=== PATIENT | female | born 1985 | race Caucasian/White ===

== ENCOUNTER 2016-08-28 08:25 | Emergency (ER) | payer MEDICAID ==
[2016-08-28] MEDS ORDERED: MAG HYDROX/AL HYDROX/SIMETH 30 ML UDC PO STA (08:53)
[2016-08-28] MEDS ORDERED: ONDANSETRON ODT 4 MG TABLET TL STA (08:53)
[2016-08-28] MEDS ORDERED: PHENobarb/HYOSCY/ATROPINE/SCOP 5 ML SYRINGE PO STA (08:54)
[2016-08-28] MEDS ORDERED: LIDOCAINE VISCOUS 2% 15 ML UDC MM STA (08:54)
[2016-08-28] MEDS ORDERED: ONDANSETRON 4 MG/2 ML VIAL IVP STA (08:57)
[2016-08-28] MEDS ORDERED: SODIUM CHLORIDE 0.9% 1,000 ML IV ONE (08:57)
[2016-08-28] MEDS ORDERED: PHENobarb/HYOSCY/ATROPINE/SCOP 5 ML SYRINGE PO ONE (09:03)
[2016-08-28] MEDS ORDERED: MAG HYDROX/AL HYDROX/SIMETH 30 ML UDC ONE (09:03)
[2016-08-28] MEDS ORDERED: ONDANSETRON ODT 4 MG TABLET ONE (09:03)
[2016-08-28] MEDS ORDERED: LIDOCAINE VISCOUS 2% 15 ML UDC MM ONE (09:03)
[2016-08-28] MEDS ORDERED: HYDROmorphone 1 MG/ML SYRINGE IM STA (09:45)
[2016-08-28] MEDS ORDERED: PROMETHAZINE 25 MG/1 ML VIAL IM STA (09:45)
[2016-08-28] MEDS ORDERED: PROMETHAZINE 25 MG/1 ML VIAL ONE (09:47)
[2016-08-28] MEDS ORDERED: HYDROmorphone 1 MG/ML SYRINGE ONE (09:47)
== END 2016-08-28 10:56 | disposition home or self-care (01) ==
DX: K29.70 Gastritis, unspecified, without bleeding (principal); Z87.891 Personal history of nicotine dependence
CPT/HCPCS: 36415; 80053; 83690; 85025; 96372; 99283; 99284; A9270; Q0162

== ENCOUNTER 2016-08-28 20:34 | Emergency (ER) | payer MEDICAID ==
[2016-08-28] MEDS ORDERED: LIDOCAINE VISCOUS 2% 15 ML UDC MM STA (21:31)
[2016-08-28] MEDS ORDERED: PANTOPRAZOLE 40 MG TABLET PO STA (21:31)
[2016-08-28] MEDS ORDERED: MAG HYDROX/AL HYDROX/SIMETH 30 ML UDC PO STA (21:31)
[2016-08-28] MEDS ORDERED: PANTOPRAZOLE 40 MG TABLET ONE (21:34)
[2016-08-28] MEDS ORDERED: LIDOCAINE VISCOUS 2% 15 ML UDC MM ONE (21:34)
[2016-08-28] MEDS ORDERED: MAG HYDROX/AL HYDROX/SIMETH 30 ML UDC ONE (21:35)
== END 2016-08-28 21:57 | disposition home or self-care (01) ==
DX: K29.70 Gastritis, unspecified, without bleeding (principal); D72.829 Elevated white blood cell count, unspecified; Z90.710 Acquired absence of both cervix and uterus; Z90.49 Acquired absence of other specified parts of digestive tract; Z87.891 Personal history of nicotine dependence
CPT/HCPCS: 99283; A9270

== ENCOUNTER 2017-12-15 22:33 | Outpatient (CLI) | payer MEDICAID | END 2017-12-15 22:34 | disposition EMS.NT | LOC: EMS 22:33 | PROVIDERS: ATTEND Surgery | DX: S49.92XA Unspecified injury of left shoulder and upper arm, initial encounter (principal); Y04.2XXA Assault by strike against or bumped into by another person, initial encounter ==

== ENCOUNTER 2018-12-05 22:46 | Outpatient (CLI) | payer MEDICAID | END 2018-12-05 22:47 | disposition critical access hospital (66) | LOC: EMS 22:46 | PROVIDERS: ATTEND Surgery | DX: R10.9 Unspecified abdominal pain (principal); R11.0 Nausea; T50.991A Poisoning by other drugs, medicaments and biological substances, accidental (unintentional), initial encounter; Y92.009 Unspecified place in unspecified non-institutional (private) residence as the place of occurrence of the external cause | CPT/HCPCS: A0425; A0427 ==

== ENCOUNTER 2018-12-05 23:11 | Inpatient (IN) | payer MEDICAID ==
[2018-12-05 23:42] LABS: BASOPHILS % (AUTO) 0.3 %; HGB - HEMOGLOBIN 14.2 g/dL (12.0-16.0); LYMPHOCYTES # (AUTO) 1.7 10^3/uL (1.5-3.5); LYMPHOCYTES % (AUTO) 15.5 %; MEAN CORPUSCULAR HEMOGLOBIN 29.1 pg (27.0-31.0); MEAN PLATELET VOLUME 8.9 fL (7.9-10.8); MONOCYTES # (AUTO) 0.4 10^3/uL (0.0-1.0); MONOCYTES % (AUTO) 3.4 %; NEUTROPHILS # (AUTO) 8.9 10^3/uL (1.5-6.6); NEUTROPHILS % (AUTO) 80.8 %; PLT - PLATELET COUNT 232 10^3/uL (130-450); RED BLOOD COUNT 4.89 10^6/uL (4.20-5.40); RED CELL DISTRIBUTION WIDTH 12.9 % (12.0-15.0)
[2018-12-05 23:53] LABS: ALBUMIN 4.3 g/dL (3.2-5.5); ALBUMIN/GLOBULIN RATIO 1.2 (1.0-2.2); ALKALINE PHOSPHATASE 74 IU/L (42-121); ALT ALANINE AMINOTRANSFERASE 11 IU/L (10-60); AST ASPARTATE AMINOTRANSFERASE 15 IU/L (10-42); BILIRUBIN,TOTAL 0.6 mg/dL (0.2-1.0); BUN - BLOOD UREA NITROGEN 10 mg/dL (6-20); CARBON DIOXIDE - CO2 19 mmol/L (21-32); CHLORIDE 103 mmol/L (101-111); CREATININE 0.7 mg/dL (0.4-1.0); GFR - MDRD 96 (>89); GLUCOSE 138 mg/dL (70-100); LIPASE 32 U/L (22-51); SODIUM 136 mmol/L (135-145); TOTAL PROTEIN 7.8 g/dL (6.7-8.2)
[2018-12-05 23:55] LABS: ACETAMINOPHEN 41 ug/mL (10-30); SALICYLATE 26.5 mg/dL
--- NOTE | 2018-12-06 00:06 | ED Physician Documentation ---
PD HPI OVERDOSE - Stated complaint Stated Complaint: OD - Chief complaint Chief Complaint: MHE - History obtained from History obtained from: Patient, Family (case (in ED at bedside)) - History of Present Illness Timing - onset: Other (per case, ingestion was at 3 PM today (see below)) Subtance(s) ingested: Single (acetaminophen) Associated symptoms: Abdominal pain Contributing factors: Depresssed, Suicidal Pain level now: 8 (abdominal pain) Similar symptoms before: Has not had sx before Recently seen: Not recently seen - Additional information Additional information: patient admits to intentional overdose of tylenol earlier today. She offers limited HPI, as she repeatedly asks for her abdominal discomfort to be immediately addressed. Per patient's daughter , patient texted her earlier today with a message that indicated suicidal intent and included information to the effect of saying goodbye. Patient's daughter says that patient told her she took "two bottles" of tylenol at 3 PM today. Daughter called 911, policed arrived and, per medic report, asked for EMS transport to ED after they confirmed that patient sent suicidal message to family. Review of Systems Unable to obtain: Other (Limited due to uncooperative (not argumentative, but answers most questions by redirecting to her abominal pain and nausea)) Cardiac: denies: Chest pain / pressure Respiratory: denies: Dyspnea GI: reports: Abdominal Pain, Nausea, Vomiting Neurologic: denies: Confused, Altered mental status, Headache Psychiatric: reports: Depressed, Suicidal PD PAST MEDICAL HISTORY - Past Medical History Cardiovascular: None Respiratory: None Endocrine/Autoimmune: None GI: None ANTIQUE DEALER: None : Other HEENT: None Psych: None Musculoskeletal: None Derm: None - Past Surgical History Past Surgical History: Yes General: Appendectomy /ANTIQUE DEALER: Dilation and currettage, Tubal ligation, Hysterectomy - Allergies Allergies/Adverse Reactions: Allergies Allergy/AdvReac Type Severity Reaction Status Date / Time No Known Drug Allergies Allergy Verified 08/28/16 08:34 - Social History Does the pt smoke?: No Smoking Status: Never smoker Does the pt drink ETOH?: Yes Does the pt have substance abuse?: No - Immunizations Immunizations are current?: Yes - POLST Patient has POLST: No PD ED PE NORMAL - Vitals Vital signs reviewed: Yes - General General: Alert and oriented X 3, Well developed/nourished, Other (crying) - HEENT HEENT: PERRL, EOMI, Moist mucous membranes - Neck Neck: Supple, no meningeal sign - Cardiac Cardiac: RRR, No murmur - Respiratory Respiratory: No respiratory distress, Clear bilaterally - Abdomen Abdomen: Soft, Non tender, Non distended - Derm Derm: Normal color, Warm and dry - Extremities Extremities: No edema Results - Vitals Vitals: Vital Signs - 24 hr 12/05/18 12/06/18 23:31 02:23 Temperature 36.6 C Heart Rate 80 74 Respiratory 22 20 Rate Blood Pressure 119/80 123/83 H O2 Saturation 96 98 Oxygen O2 Source Room air - Labs Labs: Laboratory Tests 12/05/18 12/05/18 12/05/18 23:25 23:25 23:25 WBC 11.0 H RBC 4.89 Hgb 14.2 Hct 43.0 MCV 88.0 MCH 29.1 MCHC 33.0 RDW 12.9 Plt Count 232 MPV 8.9 Neut # (Auto) 8.9 H Lymph # (Auto) 1.7 Hamlin # (Auto) 0.4 Eos # (Auto) 0.0 Baso # (Auto) 0.0 Absolute Nucleated RBC 0.01 Nucleated RBC % 0.1 Sodium 136 Potassium 3.3 L Chloride 103 Carbon Dioxide 19 L Anion Gap 14.0 H BUN 10 Creatinine 0.7 Estimated GFR (MDRD) 96 Glucose 138 H Calcium 9.0 Total Bilirubin 0.6 AST 15 ALT 11 Alkaline Phosphatase 74 Total Protein 7.8 Albumin 4.3 Globulin 3.5 Albumin/Globulin Ratio 1.2 Lipase 32 TSH 0.37 Salicylates 26.5 Acetaminophen 41 H* Ethyl Alcohol < 5.0 12/06/18 01:59 WBC RBC Hgb Hct MCV MCH MCHC RDW Plt Count MPV Neut # (Auto) Lymph # (Auto) Hamlin # (Auto) Eos # (Auto) Baso # (Auto) Absolute Nucleated RBC Nucleated RBC % Sodium Potassium Chloride Carbon Dioxide Anion Gap BUN Creatinine Estimated GFR (MDRD) Glucose Calcium Total Bilirubin AST ALT Alkaline Phosphatase Total Protein Albumin Globulin Albumin/Globulin Ratio Lipase TSH Salicylates 23.5 Acetaminophen Ethyl Alcohol PD MEDICAL DECISION MAKING - ED course Complexity details: reviewed old records, reviewed results, re-evaluated patient, considered differential, d/w patient, d/w family ED course: Given IV fluids, zofran, morphine, and ativan with good results. On reevaluation, she is now calm and cooperative. She admits to taking intentional tylenol overdose and says it was approximately 3 PM. her acetaminophen level is mildly elevated at 41. Poison control was contacted and their recommendation is to give mucomyst per 20 hour protocol due to patient's unreliability (her HPI varied several times earlier in ED stay regarding amount of tylenol taken as well as time of ingestion), and considering that her level is below, but close to, threshold for treatment on nomogram if ingestion truly occurred at 3 PM. I explained this plan to patient and she is calm, cooperative, and understands and agrees with this plan. Of note, her salicylate level was also elevated (not undetectable, but within a therapeutic range); poison control's recommendation was repeat after 2 hours. If level is declining, no treatment indicated, but if it increases, to give IV fluids with bicarb Departure - Departure Disposition: ED Place in Observation Clinical Impression: Suicidal ideation Acetaminophen overdose Qualifiers: Encounter type: initial encounter Injury intent: intentional self-harm Qualif ied Code(s): T39.1X2A - Poisoning by 4-Aminophenol derivatives, intentional self-harm, initial encounter Condition: Stable Discharge Date/Time: 12/06/18 03:01
[2018-12-06] MEDS ORDERED: ONDANSETRON 4 MG/2 ML VIAL IVP STA (00:31)
[2018-12-06] MEDS ORDERED: LORazepam 2 MG/ML VIAL IVP STA (00:31)
[2018-12-06] MEDS ORDERED: MORPHINE 2 MG/ML SYRINGE IVP STA (00:31)
[2018-12-06] MEDS ORDERED: SODIUM CHLORIDE 0.9% 1,000 ML IV STA (00:31)
[2018-12-06] MEDS ORDERED: ACETYLCYSTEINE IV STA (01:09)
[2018-12-06] MEDS ORDERED: DEXTROSE 5% IV STA (01:09)
[2018-12-06] MEDS ORDERED: DEXTROSE 5% IV ONE ×2 (02:42→08:00)
[2018-12-06] MEDS ORDERED: ACETYLCYSTEINE IV ONE ×2 (02:42→08:00)
[2018-12-06] MEDS: SODIUM CHLORIDE 0.9% 1,000 ML IV SCH ×2 (04:03→13:27)
[2018-12-06 04:25] LABS: BASOPHILS % (AUTO) 0.4 %; EOSINOPHILS % (AUTO) 0.1 %; HGB - HEMOGLOBIN 13.4 g/dL (12.0-16.0); LYMPHOCYTES # (AUTO) 2.1 10^3/uL (1.5-3.5); LYMPHOCYTES % (AUTO) 16.9 %; MEAN CORPUSCULAR HEMOGLOBIN 29.4 pg (27.0-31.0); MEAN CORPUSCULAR HGB CONC 33.6 g/dL (32.0-36.0); MEAN CORPUSCULAR VOLUME 87.5 fL (81.0-99.0); MEAN PLATELET VOLUME 8.7 fL (7.9-10.8); MONOCYTES # (AUTO) 0.7 10^3/uL (0.0-1.0); MONOCYTES % (AUTO) 5.7 %; NEUTROPHILS # (AUTO) 9.5 10^3/uL (1.5-6.6); NEUTROPHILS % (AUTO) 76.9 %; PLT - PLATELET COUNT 232 10^3/uL (130-450); RED BLOOD COUNT 4.56 10^6/uL (4.20-5.40); RED CELL DISTRIBUTION WIDTH 12.9 % (12.0-15.0); WHITE BLOOD COUNT 12.3 x10^3/uL (4.8-10.8)
[2018-12-06 04:37] LABS: ALBUMIN 3.9 g/dL (3.2-5.5); ALBUMIN/GLOBULIN RATIO 1.2 (1.0-2.2); BILIRUBIN,TOTAL 0.6 mg/dL (0.2-1.0); CALCIUM 8.4 mg/dL (8.5-10.3); CREATININE 0.7 mg/dL (0.4-1.0); TOTAL PROTEIN 7.1 g/dL (6.7-8.2)
[2018-12-06] MEDS: MORPHINE 2 MG/ML SYRINGE IVP PRN ×5 (05:09→21:40)
[2018-12-06] MEDS: ONDANSETRON 4 MG/2 ML VIAL IVP PRN ×3 (05:09→17:29)
--- NOTE | 2018-12-06 05:35 | HISTORY & PHYSICAL EXAMINATION ---
Chief Complaint - Chief Complaint Chief Complaint: ?tylenol overdose, abdominal pain History of Present Illness - Admitted From Admitted From:: [facility] ED - History Obtained From Records Reviewed: yes History obtained from: patient and ED physician Exam Limitations: patient not being very cooperative - History of Present Illness HPI Comment/Other: "SENT TEXT TO ONE OF HER CHILDREN STATING SHE TOOK 200 TABS OF TYLENOL AND HER LIVER WAS SHUTTING DOWN AND SHE WOULDNT BE AROUND MUCH LONGER. PT DENIES SI TO THIS RN AND EMS REPORTS NO SI STATEMENTS TO THEM. EMS REPORTS PT STATING SHE TOOK 50 EXCEDERIN MIGRAINE TABS TODAY. PT STATES TO THIS RN THAT SHE TOOK 15 EXCEDRIN TABS THROUGHOUT THE DAY FOR ABD PAIN. PT DENIES SI THROUGHOUT TRIAGE." The above account was obtained from the triage note because the patient is not very forthcoming with information. Upon presentation to bedside she was sound asleep. On waking he up she immediately complained of abdominal pain and vomited profusely. This was followed by a prolonged series of sneezing. She tells me she has been having abdominal pain for 2 days but only started taking tylenol at 3pm on 12/05/18 for her pain. She denies suicidal ideation or any previous suicidal attempt. On further questioning she says she does not want to answer questions at this time She was found to have a tylenol level of 41. She is being admitted for further management History - Past Medical History Cardiovascular: reports: None Respiratory: reports: None Neuro: reports: None Endocrine/Autoimmune: reports: None GI: reports: None RN RECOVERY: reports: None : reports: Other HEENT: reports: None Psych: reports: None Musculoskeletal: reports: None Derm: reports: None MRSA Hx?: No Other Past Medical History: She denies any significant past medical history - Past Surgical History General: reports: Appendectomy /RN RECOVERY: reports: Dilation and currettage, Tubal ligation, Hysterectomy - Family & Social History Family History Comment/Other: Patient denies any significant family history Living arrangement: At home Living Situation: With family - Substance History Use: Uses substance without health or social issues: NONE (Denies tobacco use, illicit drug use or alcohol) - POLST Patient has POLST: No POLST Status: Full Code Meds/Allgy - Allergies Allergies/Adverse Reactions: Allergies Allergy/AdvReac Type Severity Reaction Status Date / Time No Known Drug Allergies Allergy Verified 08/28/16 08:34 Review of Systems - Constitutional Constitutional: reports: Chills. denies: Fever, Diaphoresis, Night sweats - Eyes Eyes: denies: Blurred vision, Vision loss, Dipolpia - Ears, Nose & Throat Ears, Nose & Throat: denies: Vertigo, Nasal pain, Nasal discharge, Sore throat, Hoarseness - Cardiovascular Cariovascular: denies: Irregular heart rate, Palpitations, Chest pain, Edema, Lightheadedness, Syncope, Exertional dyspnea - Respiratory Respiratory: denies: Cough, Sputum production, Wheezing, Snoring, Hemoptysis, SOB at rest - Gastrointestinal Gastrointestinal: reports: Abdominal pain, Nausea, Vomiting. denies: Abdominal distention, Constipation, Diarrhea, Coffee grounds emesis, Reflux/heartburn - Genitourinary Genitourinary: denies: Dysuria, Frequency, Urgency, Hematuria - Musculoskeletal Musculoskeletal: denies: Muscle aches, Stiffness, Joint pain - Integumentary Integumentary: denies: Rash, Pruritis, Lesions, Dryness - Neurological Neurological: denies: General weakness, Focal weakness, Headache, Dizziness, Numbness - Psychiatric Psychiatric: reports: Depression, Suicidal. denies: Anxiety - Endocrine Endocrine: denies: Polyuria, Polydypsia - Hematologic/Lymphatic Hematologic/Lymphatic: denies: Anemia Prior Level of Functionality: Lives at home with her family Is independent of activities of daily living Exam - Vital Signs Vital Signs: Vital Signs x48h Temp Pulse Resp BP Pulse Ox 12/06/18 02:23 74 20 123/83 H 98 12/05/18 23:31 36.6 C 80 22 119/80 96 - Physical Exam General Appearance: positive: Alert, Moderate distress, Lethargic Eyes Bilateral: positive: Normal inspection, PERRL, EOMI, No lid inflammation, Conjunctivae nml, No scleral icterus ENT: positive: ENT inspection nml, Pharynx nml Neck: positive: Nml inspection, No JVD, Trachea midline Respiratory: positive: Chest non-tender, No respiratory distress. negative: Wheezes, Rales, Rhonchi Cardiovascular: positive: Regular rate & rhythm, No murmur, No gallop Abdomen: positive: Nml bowel sounds, No distention, Tenderness, Guarding, Rebound Back: positive: Nml inspection Skin: positive: Color nml, Warm, Dry. negative: No rash (goose bumps) Extremities: positive: Non-tender, Full ROM, Nml appearance, No pedal edema Neurologic/Psychiatric: positive: Oriented x3 Conclusion/Plan - Problem List (1) Acetaminophen overdose Conclusion/Plan: Patient started on N-Acetylsteine per protocol for tylenol toxicity. Poison control was contacted by the ED Will monitor CMP and tylenol levels Qualifiers: Encounter type: initial encounter Injury intent: intentional self-harm Qualified Code(s): T39.1X2A - Poisoning by 4-Aminophenol derivatives, intentional self-harm, initial encounter (2) Suicidal ideation Conclusion/Plan: Social work consulted for evaluation Patient will likely need a psych eval (3) Nausea and vomiting Conclusion/Plan: Zofran IV ordered (4) Hypokalemia Conclusion/Plan: Likely 2/2 n/v Will replace. Also checking Magnesium - Lab Results Fish Bones: 12/06/18 04:18 12/06/18 04:18 Core Measures - Anticipated LOS I expect patient to be DC'd or transferred within 96 hours.: Yes - DVT/VTE - Prophylaxis VTE/DVT Device ordered at admit?: Yes
[2018-12-06 05:56] LABS: MUDS CUTOFF CONCENTRATIONS CUTOFF CONC BELOW:
[2018-12-06 06:01] LABS: BILIRUBIN,URINE NEGATIVE (NEGATIVE); GLUCOSE, URINE (UA) NEGATIVE (NEGATIVE); KETONES,URINE (UA) >=80 mg/dL (NEGATIVE); LEUKOCYTE ESTERASE, URINE NEGATIVE (NEGATIVE); NITRITE,URINE NEGATIVE (NEGATIVE); OCCULT BLOOD,URINE NEGATIVE (NEGATIVE); PROTEIN,URINE NEGATIVE (NEGATIVE); UROBILINOGEN,URINE 0.2 (NORMAL) E.U./dL (NORMAL)
[2018-12-06 06:14] LABS: HCG UR QUAL NEGATIVE
[2018-12-06 06:15] LABS: CLARITY,URINE CLEAR (CLEAR)
[2018-12-06 06:45] LABS: AMPHETAMINE SCREEN,URINE NEGATIVE (NEGATIVE); BENZODIAZEPINES SCREEN, URINE POSITIVE (NEGATIVE); COCAINE SCREEN URINE POSITIVE (NEGATIVE); METHADONE SCREEN, URINE NEGATIVE (NEGATIVE); METHAMPHETAMINES SCREEN, URINE NEGATIVE (NEGATIVE); OPIATE SCREEN, URINE NEGATIVE (NEGATIVE); OXYCODONE SCREEN, URINE NEGATIVE (NEGATIVE); PROPOXYPHENE SCREEN, URINE NEGATIVE (NEGATIVE); TRICYCLIC ANTIDEPRESSANT,URINE NEGATIVE (NEGATIVE)
[2018-12-06] MEDS: POTASSIUM CHLOR 10 MEQ/100 ML 10 MEQ/100 ML BAG IV SCH ×4 (07:49→11:58)
[2018-12-06] MEDS: POLYETHYLENE GLYCOL 3350 17 GM PACKET PO SCH (09:23)
[2018-12-06] MEDS: SODIUM CHLORIDE FLUSH 0.9% 10 ML SYRINGE IVP SCH ×2 (09:24→17:06)
[2018-12-06] MEDS: SODIUM CHLORIDE FLUSH 0.9% 10 ML SYRINGE IVP PRN (09:36)
[2018-12-06] MEDS ORDERED: IOVERSOL 320 100 ML VIAL IVP ONE ×2 (09:37→17:05)
--- NOTE | 2018-12-06 10:35 | CT Report ---
Reason: WAVES OF ABD PAIN AFTER APAP OD Procedure Date: 12/06/2018 Accession Number: [id number] / [id number] Procedure: CT - Abdomen/Pelvis W CPT Code: FULL RESULT: EXAM: CT ABDOMEN AND PELVIS EXAM DATE: 12/06/2018 09:53 AM. CLINICAL HISTORY: WAVES OF ABD PAIN AFTER APAP OD. COMPARISONS: ABDOMEN/PELVIS W/ 06/03/2016 9:42 PM. TECHNIQUE: Routine helical CT imaging was performed through the abdomen and pelvis. IV contrast: OPTI 320 90mL. Enteric contrast: No. Reconstructions: Coronal and sagittal. In accordance with CT protocol optimization, one or more of the following dose reduction techniques were utilized for this exam: automated exposure control, adjustment of mA and/or KV based on patient size, or use of iterative reconstructive technique. FINDINGS: Lung Bases: Unremarkable. Liver: Normal. No masses. Gallbladder/Bile Ducts: Unremarkable. Spleen: Normal. Pancreas: Normal. Adrenal Glands: Normal. Kidneys: Normal. No masses or hydronephrosis. Peritoneal Cavity/Bowel: Normal. No free fluid, free air or adenopathy. No masses or acute inflammatory process. The appendix is well visualized and normal. Pelvic Organs: Normal. The bladder and visualized pelvic organs are within normal limits. Vasculature: No aneurysms or other significant abnormality. Bones: No significant abnormality. Other: None. IMPRESSION: Normal abdomen and pelvis CT. RADIA
[2018-12-07] MEDS: SODIUM CHLORIDE 0.9% 1,000 ML IV SCH ×2 (00:05→11:00)
[2018-12-07] MEDS: SODIUM CHLORIDE FLUSH 0.9% 10 ML SYRINGE IVP SCH ×3 (00:07→18:23)
[2018-12-07] MEDS: MORPHINE 2 MG/ML SYRINGE IVP PRN ×5 (00:47→18:23)
[2018-12-07 05:46] LABS: BASOPHILS % (AUTO) 0.4 %; EOSINOPHILS % (AUTO) 0.4 %; HGB - HEMOGLOBIN 12.8 g/dL (12.0-16.0); LYMPHOCYTES # (AUTO) 2.7 10^3/uL (1.5-3.5); MEAN CORPUSCULAR HEMOGLOBIN 29.8 pg (27.0-31.0); MEAN CORPUSCULAR HGB CONC 33.3 g/dL (32.0-36.0); MEAN CORPUSCULAR VOLUME 89.4 fL (81.0-99.0); MEAN PLATELET VOLUME 8.9 fL (7.9-10.8); MONOCYTES # (AUTO) 0.7 10^3/uL (0.0-1.0); MONOCYTES % (AUTO) 8.3 %; NEUTROPHILS % (AUTO) 58.9 %; PLT - PLATELET COUNT 189 10^3/uL (130-450); RED BLOOD COUNT 4.29 10^6/uL (4.20-5.40); RED CELL DISTRIBUTION WIDTH 13.3 % (12.0-15.0); WHITE BLOOD COUNT 8.4 x10^3/uL (4.8-10.8)
[2018-12-07 05:56] LABS: ALBUMIN 3.4 g/dL (3.2-5.5); ALBUMIN/GLOBULIN RATIO 1.4 (1.0-2.2); BILIRUBIN,TOTAL 0.5 mg/dL (0.2-1.0); CALCIUM 8.5 mg/dL (8.5-10.3); CREATININE 0.8 mg/dL (0.4-1.0); TOTAL PROTEIN 5.9 g/dL (6.7-8.2)
[2018-12-07] MEDS ORDERED: POTASSIUM CHLORIDE 20 MEQ TABLET PO ONE (08:19)
[2018-12-07] MEDS: ONDANSETRON 4 MG/2 ML VIAL IVP PRN (08:21)
[2018-12-07] MEDS: POLYETHYLENE GLYCOL 3350 17 GM PACKET PO SCH (08:38)
[2018-12-07 16:28] VITALS: BP 119/76
[2018-12-07] MEDS: SODIUM CHLORIDE FLUSH 0.9% 10 ML SYRINGE IVP PRN (18:23)
[2018-12-07] MEDS ORDERED: LORazepam 1 MG TABLET PO STA (21:55)
--- NOTE | 2018-12-08 10:13 | Discharge Plan ---
Discharge Plan Disposition: [facility]Unit DC/Xfer Condition: Stable Diet: Regular Activity Restrictions: Activity as Tolerated Shower Restrictions: No Driving Restrictions: No No Smoking: If you smoke, Please STOP! Call for help.
--- NOTE | 2018-12-14 16:49 | MISCELLANEOUS PROVIDER NOTE ---
Miscellaneous Provider Note - - Note: December 07, 2018 14:00 The patient is being seen in follow-up for her suicidal ideation and attempt to overdose with Tylenol etc. Her story changes. Will follow one and she says she feels just like, and wanted to kill herself because of her social situation, she states that she needs to get out of here because she has to go to work on Wednesday. She did initially told us that she does not have a job and that was 1 of the reason she was desperate. She continues to be tearful, complaining of abdominal pain. Vital signs are normal. No fever. Lab review shows her Tylenol levels to be normal and she can come off Mucomyst. Temperature is 36.6, pulse 84, blood pressure 106/71, respirations 16, 99% on room air. She is a slender pale female. She prefers to have all the lights out of the room and she will put the covers close to her neck but not over her head. Neck is supple Lungs are clear to auscultation and percussion Normal bowel sounds, diffusely tender abdomen in all quadrants she is using, no rebound or guarding, no masses palpable. Extremities are warm. No clubbing cyanosis or edema Neurologically she is alert and oriented to person place and time. Can follow two-step commands. Is able to sit up on her bed, put her feet and for transfer to a standing position without difficulty or ataxia. Laboratory Tests 12/07/18 12/07/18 05:00 05:00 WBC 8.4 Hgb 12.8 Hct 38.4 Plt Count 189 Sodium 136 Potassium 3.2 L Chloride 105 Carbon Dioxide 20 L Anion Gap 11.0 BUN 5 L Creatinine 0.8 Total Bilirubin 0.5 AST 27 ALT 10 Alkaline Phosphatase 51 Total Protein 5.9 L Assessment/plan 1. Acetaminophen and aspirin overdose. Levels are no longer toxic. Patient is now medically cleared and we are requesting the [facility] evaluation. 2 suicidal ideation. Patient at times denies suicidal ideation but is confirmed by her children, and occasionally by her 3. Nausea and vomiting on admission. None present since admission. However abdominal pain is present.CT of the abdomen and pelvis is negative. Urinalysis has been negative. 4. Hypokalemia will be supplemented with oral medication.
--- NOTE | 2018-12-14 22:39 | DISCHARGE SUMMARY ---
Physician: Leidy Askew MD DATE OF ADMISSION: 12/06/2018 DATE OF DISCHARGE: 12/07/2018 DISCHARGE DIAGNOSES 1. Tylenol overdose with Excedrin overdose. 2. Suicidal ideation. 3. Nausea and vomiting. 4. Hypokalemia. DISCHARGE MEDICATIONS: None. DISPOSITION: Patient is discharged to inpatient psych facility. PRINCIPAL PROCEDURES 1. Abdomen and pelvis CT: Normal. 2. Mucomyst drip. HOSPITAL COURSE: She is a 32-year-old white female who texted her children earlier in the day that s he had taken an overdose of medication and wanted to . She is not very forthcoming on presentatio n. She is asleep, awakens easily, but complains of abdominal pain and vomiting. She says that the r ayad she took the overdose was she was desperate. She felt like life was not worth living anymore, she was unemployed, and this abdominal pain was really bothering her. She initially denied any suici ren ideation or previous suicide attempt, but she was very evasive in her history. Children confirme d her suicidal attempt by showing us on the phone where she did text them to say that she wanted to d ie and had overdosed on medication. She was afebrile, not tachycardic, normotensive. Abdominal exam was benign, in spite of her complain ts of abdominal pain. During her stay, because of the abdominal pain, CT of the abdomen and pelvis w as done and was negative for pathology. She had normal bowel sounds, no masses. The pain was consta nt, unremitting, and reportedly relieved only by opiates, per her story. We did obtain a urinalysis to make sure there was no hematuria indicating stones, and that was negative. Urine hCG was negative . She was placed on IV Mucomyst, after we spoke to Poison Control. Tylenol level was initially 41, the n down to 18, then less than 10. Urine tox screen was positive for benzodiazepines, cocaine. No eth yl alcohol. Salicylates were initially 26.5 and repeat 23.5. The patient was felt stable from a medical standpoint. Vitals were normal, Tylenol level was now not toxic. She did still complain of abdominal pain, but that would wax and wane throughout her stay. There were no further episodes of emesis. She was seen by Social Work and [facility] from [facility]. She was deemed an involuntary hold. As such, she was transferred to acute inpatient facility. Greater than 30 minutes were spent coordinating discharge. PHYSICAL EXAMINATION VITAL SIGNS: At discharge, temperature was 37.5, pulse 67, blood pressure 119/76, respirations 18, 9 9% on room air. GENERAL: She is a 5 feet 2 inch tall female, slender, very fatigued, circles under her eyes. Occasi onally tearful. NECK: Supple. LUNGS: Clear. CARDIOVASCULAR: Regular rate and rhythm. ABDOMEN: Firm musculature, but no masses. Normal bowel sounds. No rebound or guarding. She had di ffuse mild pain at discharge. NEUROLOGIC: She can follow commands. Alert and oriented. Able to sit up in bed, and walk in her ro om. TD: 12/14/2018 16:54
== END 2018-12-07 22:10 | DRG 914 ==
LOC: EDUNIT# → ED 23:11 → MS3 12-06 02:30
PROVIDERS: ADMIT Internal Medicine; ATTEND Specialist
DX: T14.91XA Suicide attempt, initial encounter (principal); T39.1X2A Poisoning by 4-Aminophenol derivatives, intentional self-harm, initial encounter; R11.2 Nausea with vomiting, unspecified; T39.092A Poisoning by salicylates, intentional self-harm, initial encounter; E87.6 Hypokalemia; R10.9 Unspecified abdominal pain; F32.9 Major depressive disorder, single episode, unspecified; R78.4 Finding of other drugs of addictive potential in blood
CPT/HCPCS: 36415; 74177; 80053; 80306; 80307; 80320; 80329; 81003; 81025; 83605; 83690; 83735; 84132; 84443; 85025; 93005; 96365; 96375; 99284; A9270; J0132; J2060; J2270; J3490; J8499; Q9967; 81001; 87086